=== PATIENT | female | born 1970 | race Caucasian/White ===

== ENCOUNTER 2023-05-01 07:57 | Outpatient (OUT) | payer BC, SELFPAY ==
--- NOTE | 2023-05-01 08:06 | VEIN_ITS ---
[address] [address] Patient Name: LILLIE BOTELLO MRN: [id number] date: 1970 Sex: F Assigned Patient Location: Current Patient Location: Accession/Order Number: [id number] Exam Date: 05/01/2023 08:10 Report Date: 05/01/2023 09:22 At the request of: RUSSELL SHARPE Procedure: VC INJ Foam Sclerosant WUS BUSINESS LEADER PROCEDURE: VC INJ Foam Sclerosant WUS BUSINESS LEADER COMPARISON: None. HISTORY: painful varicose veins I83.813 Pre-operative Diagnosis: CEAP class 3 venous insufficiency with pain, tenderness, edema and incompetent branch saphenous vein(s), chronic venous insufficiency ] leg secondary to venous incompetence Post-operative Diagnosis: CEAP class 3 venous insufficiency with pain, tenderness, edema and incompetent branch saphenous vein(s), chronic venous insufficiency right leg secondary to venous incompetence Procedure Performed: 1. Ultrasound-guided microfoam chemical ablation with Varithenaregistered 2. Intraoperative ultrasound guidance Physician: Jeramy Arriaga M.D. Anesthesia: None Indications for Procedure: 52 year old female. Symptoms including bulging dilated veins, leg cramping and pain, swelling for many years despite conservative medical therapy including medical compression stockings, exercise and analgesics. Prior procedures include endovenous laser ablation. Multiple incompetent varicosities of the right leg. Duplex scan showed reflux and enlarged diameters up to 4 mm. The patient underwent informed consent including management options where the complications of infection, bleeding, pain, and skin injury were discussed. Particular attention was spent discussing thrombus extension and deep vein thrombosis as well as the possibility of pulmonary embolus and treatment with oral or injectable blood thinners. Procedure: The patient walked to the procedure room. All applicable staff donned appropriate apparel. A procedure timeout was performed to confirm correct patient, correct extremity, correct procedure, and correct room set-up including presence of all applicable supplies, devices, and drugs. A duplex ultrasound, performed by myself confirmed the location and incompetence of branch saphenous varicosities and their course was marked on the skin together with the dilated tributaries. The extent of treatment of the vein and the associated varicosities was determined through ultrasound mapping. The skin was prepped and then punctured with a butterfly needle and advanced under ultrasound guidance. The Varithenaregistered canister was activated and the canister was primed and purged as required in the instructions for use. Varithenaregistered was drawn into a sterile syringe. Varithenaregistered was slowly administered at 0.5-1.0 cc/second with close observation by ultrasound of its course in the vessels. Total volume utilized was: 14 mL (4 mL into a 4 mm varicosity of the distal medial lower leg; 4 mL into a 4 mm varicosity posterior to the knee; 6 mL into a 4 mm varicosity posterior medial knee). Following administration of Varithenaregistered the leg was elevated and the patient was asked to repeatedly dorsiflex the ankle to limit flow of Varithenaregistered into perforating veins. Once appropriate spasm had been confirmed in the treated veins, the vascular catheter was removed from the leg and light pressure was applied over the puncture site for hemostasis. The common femoral and deep superficial veins were then evaluated for flow and compressibility prior to dressing placement. The lower extremity was kept elevated at 45 degrees above the horizontal and cording material was applied over the saphenous segments and tributaries to allow for eccentric compression over the target vessels including the targeted saphenous vein(s). A multilayer dressing was applied consisting of foam pads, coban and thigh-high 20-30 mm Hg compression elastic support hose were placed on the patient. The leg was lowered only after compression had been applied and the patient was immediately ambulatory. The patient ambulated 10 minutes under supervision and was without apparent concerns at time of release. Post-care instructions include advising patient to keep post-treatment bandages in place and dry for 48 hours, avoid extended periods of inactivity, avoid heavy exercise for one week, wear compression stockings on the treated leg continuously for two weeks, to walk daily for 10 minutes over the next month. The patient was instructed to take an anti-inflammatory medicine as needed and to follow up for color duplex scan of the Saphenous veins, the treated branch saphenous varicosities, the adjacent deep veins, and additional treatment within 7 days. PERSONNEL: Yandel Howell RN Electronically authenticated by: JERAMY ARRIAGA Date: 05/01/2023 09:22
== END 2023-05-01 07:58 ==
LOC: VC 08:02
PROVIDERS: PCP Radiology Diagnostic Radiology; Visit Provider Radiology Diagnostic Radiology
DX: I83.813 Varicose veins of bilateral lower extremities with pain (principal)
CPT/HCPCS: 36466

== ENCOUNTER 2023-05-06 07:58 | Outpatient (OUT) | payer BC, SELFPAY ==
--- NOTE | 2023-05-06 08:00 | VEIN_ITS ---
Patient: LILLIE BOTELLO Exam Date: 05/06/2023 : 1970 Gender:F Ordering : DR RUSSELL SHARPE M.D. Admission #: [id number] Family : Order #: [id number] CLICK HERE TO VIEW EXAM RADIOLOGY REPORT PROCEDURE: [facility] EST [facility] - OFFICE VISIT FOLLOW UP COMPARISON: None. PROGRESS NOTES: The patient reports improvement in right leg symptoms and appearance. There has been interval reduction in varicosities. The patient has followed our recommendations to walk 20-30 minutes once or twice per day since the procedure. Physical exam demonstrates decrease in varicosities of the right leg. Persistent varicosities are identified along the left leg; and bilateral spider veins. Review of the ultrasound performed the same day demonstrates occlusive thrombus extending throughout the treated vein, see separate report, consistent with a successful ablation. No thrombus extending into or beyond the saphenofemoral junction. The patient expressed a desire to proceed with treatment of remaining incompetent varicosities and spider veins. The patient was informed that treatment was a process and would require several procedures/sessions. IMPRESSION: 1. Successful ablation of the treated branch saphenous varicosities within the right leg. 2. Persistent left lower extremity incompetent varicosities and bilateral spider veins. PLAN: Microfoam chemical ablation of left lower extremity incompetent branch saphenous varicosities. Nurse notes, history and physical were reviewed and confirmed, see attached forms. The nurse was present throughout the physical exam and consultation Dictated by: Jeramy Arriaga M.D. on 05/06/2023 at 09:04 Approved by: Jeramy Arriaga M.D. on 05/06/2023 at 09:07
--- NOTE | 2023-05-06 08:00 | VEIN_ITS ---
Patient: LILLIE BOTELLO Exam Date: 05/06/2023 : 1970 Gender:F Ordering : DR RUSSELL SHARPE M.D. Admission #: [id number] Family : Order #: [id number] CLICK HERE TO VIEW EXAM RADIOLOGY REPORT PROCEDURE: VC EXT VENOUS RT LMTD COMPARISON: None. INDICATIONS: Phlebitis of superficial veins of right lower extremity I80.01 TECHNIQUE: Lower extremity green scale and Duplex Doppler evaluation of the deep venous system from the inguinal ligament through the calf veins. FINDINGS: REGION: Right lower extremity. THROMBI: Negative for DVT. Chemically induced thrombus in multiple varicose veins in right lower leg. COMPRESSIBILITY: Non-compressible segments. FLOW: Areas of no flow. OTHER: No significant varicose veins remain. CONCLUSION: 1. Successful post ablation occlusion of the treated right leg incompetent branch saphenous varicosities. No additional varicosities remain within the right leg. Dictated by: Jeramy Arriaga M.D. on 05/06/2023 at 09:03 Approved by: Jeramy Arriaga M.D. on 05/06/2023 at 09:04
== END 2023-05-06 07:59 ==
LOC: VC 07:59
PROVIDERS: PCP Radiology Diagnostic Radiology; Visit Provider Radiology Diagnostic Radiology
DX: I80.01 Phlebitis and thrombophlebitis of superficial vessels of right lower extremity (principal)
CPT/HCPCS: 93971; G0463

== ENCOUNTER 2023-05-09 08:59 | Outpatient (OUT) | payer BC, SELFPAY ==
--- NOTE | 2023-05-09 | VEIN_ITS ---
[address] [address] Patient Name: LILLIE BOTELLO MRN: [id number] date: 1970 Sex: F Assigned Patient Location: Current Patient Location: Accession/Order Number: [id number] Exam Date: 05/09/2023 09:00 Report Date: 05/09/2023 12:39 At the request of: LEN STAFFORD Procedure: VC INJ Foam Sclerosant WUS PANTRY STEWARD/STEWARDESS PROCEDURE: VC INJ Foam Sclerosant WUS PANTRY STEWARD/STEWARDESS COMPARISON: None. HISTORY: Pain due to varicose veins of bilateral legs I83.813 Pre-operative Diagnosis: CEAP class C3 venous insufficiency with pain, tenderness, edema and incompetent saphenous veins, chronic venous insufficiency left leg secondary to venous incompetence Post-operative Diagnosis: CEAP class C3 venous insufficiency with pain, tenderness, edema and incompetent saphenous veins, chronic venous insufficiency left leg secondary to venous incompetenceinsufficiency leg secondary to venous incompetence Procedure Performed: 1. Ultrasound-guided microfoam chemical ablation with Varithenaregistered 2. Intraoperative ultrasound guidance Physician: Len Stafford M.D. Anesthesia: None Indications for Procedure: 52-year-old female who presents with a long history of lower extremity pain swelling and varicose vein for many years despite conservative medical therapy including medical compression stockings, exercise and analgesics. Prior procedures include a venous laser ablation. Multiple incompetent varicosities of the left leg. Duplex scan showed reflux and enlarged diameters up to 7 mm. The patient underwent informed consent including management options where the complications of infection, bleeding, pain, and skin injury were discussed. Particular attention was spent discussing thrombus extension and deep vein thrombosis as well as the possibility of pulmonary embolus and treatment with oral or injectable blood thinners. Procedure: The patient walked to the procedure room. All applicable staff donned appropriate apparel. A procedure timeout was performed to confirm correct patient, correct extremity, correct procedure, and correct room set-up including presence of all applicable supplies, devices, and drugs. A duplex ultrasound, performed by confirmed the location and incompetence of left leg varicose veins and their course marked on the skin together with the dilated tributaries. The extent of treatment of the vein and the associated varicosities was determined through ultrasound mapping. The patient was placed on the operating room table. The limb was prepped. The skin was punctured with a butterfly needle through the anesthetized skin with the venous access needle and advanced under ultrasound guidance. The target limb was positioned at 45 degrees of elevation in relation to the torso. The Varithenaregistered canister was activated and the canister was primed and purged as required in the instructions for use. The following injections were made: 4 cc injected into a 3 mm varicose vein distal lower left lower leg 6 cc injected into a 5 mm varicose vein left medial mid lower leg 5 cc injected into a 6 mm vein left posterior proximal lower leg Varithenaregistered was slowly administered at 0.5-1.0 cc/second with close observation by ultrasound of its course in the injected veins. A total volume of 15 mL of Varithenaregistered was used. During administration of Varithenaregistered, the patient was asked to dorsiflex the ankle to limit flow of Varithenaregistered into perforating veins. Once appropriate spasm had been confirmed in the treated veins, the vascular catheter was removed from the leg and light pressure was applied over the puncture site for hemostasis The common femoral and deep superficial veins were then evaluated for flow and compressibility prior to dressing placement. The lower extremity was kept elevated at 45 degrees above the horizontal and cording material was applied over the saphenous segments and tributaries to allow for eccentric compression over the target vessels including the targeted saphenous vein(s). A multilayer dressing was applied consisting of foam pads, coban and thigh-high 20-30 mm Hg compression elastic support hose were placed on the patient. The leg was lowered only after compression had been applied and the patient was immediately ambulatory. The patient ambulated 10 minutes under supervision and was without apparent concerns at time of release Post-care instructions include advising patient to keep post-treatment bandages in place and dry for 48 hours, avoid extended periods of inactivity, avoid heavy exercise for one week, wear compression stockings on the treated leg continuously for two weeks, to walk daily for 10 minutes over the next month. The patient was instructed to take an anti-inflammatory medicine as needed and to follow up for color duplex scan of the GSV, the treated superficial varices, the adjacent deep veins, and additional treatment within 7 days. PERSONNEL: Yandel Howell RN Electronically authenticated by: LEN STAFFORD Date: 05/09/2023 12:39
== END 2023-05-09 09:00 ==
LOC: VC 08:59
PROVIDERS: PCP Radiology Diagnostic Radiology; Visit Provider Radiology Diagnostic Radiology
DX: I83.813 Varicose veins of bilateral lower extremities with pain (principal)
CPT/HCPCS: 36466

== ENCOUNTER 2023-05-14 08:30 | Outpatient (OUT) | payer BC, SELFPAY ==
--- NOTE | 2023-05-14 08:30 | VEIN_ITS ---
Patient: LILLIE BOTELLO Exam Date: 05/14/2023 : 1970 Gender:F Ordering : DR RUSSELL SHARPE M.D. Admission #: [id number] Family : Order #: [id number] CLICK HERE TO VIEW EXAM RADIOLOGY REPORT PROCEDURE: [facility] EST [facility] - OFFICE VISIT FOLLOW UP COMPARISON: FACILITY EST [facility]D, 05/06/2023. PROGRESS NOTES: The patient reports improvement in leg symptoms. There has been interval reduction in varicosities. The patient has followed our recommendations to walk 20-30 minutes once or twice per day since the procedure. Physical exam demonstrates decrease in superficial varicosities of the bilateral legs. Review of the ultrasound performed the same day demonstrates occlusive thrombus extending throughout the treated vein, see separate report, consistent with a successful ablation. No thrombus extending into or beyond the saphenofemoral junction. Deep vein thrombus within the mid and proximal posterior tibial vein was also present. The patient expressed a desire to proceed with treatment of remaining incompetent branch saphenous varicosities and spider veins/reticular veins at the end of summer/early fall. The patient was informed that treatment was a process and would require several procedures/sessions. IMPRESSION: 1. Successful ablation of the saphenous vein 2. Persistent incompetent branch saphenous veins, spider veins/reticular veins, and mild lower extremity symptoms 3. Deep vein thrombus involving the left posterior tibial vein. PLAN: 1. Xarelto 15 mg twice a day for 21 days to assisting clearing of right posterior tibial vein thrombus. 2. Ultrasound left lower extremity veins in 3 weeks to document clearing of posterior tibial vein thrombus. 3. Patient will resume treatment of remaining incompetent branch saphenous varicosities, spider veins , and reticular veins later this fall. Nurse notes, history and physical were reviewed and confirmed, see attached forms. The nurse was present throughout the physical exam and consultation Dictated by: Jeramy Arriaga M.D. on 05/14/2023 at 12:56 Approved by: Jeramy Arriaga M.D. on 05/14/2023 at 13:01
--- NOTE | 2023-05-14 08:30 | VEIN_ITS ---
Patient: LILLIE BOTELLO Exam Date: 05/14/2023 : 1970 Gender:F Ordering : DR RUSSELL SHARPE M.D. Admission #: [id number] Family : Order #: [id number] CLICK HERE TO VIEW EXAM RADIOLOGY REPORT PROCEDURE: VC EXT VENOUS LT LIMITED COMPARISON: None. INDICATIONS: Phlebitis of superficial veins of lt. lower extremity I80.02 TECHNIQUE: Lower extremity green scale and Duplex Doppler evaluation of the deep venous system from the inguinal ligament through the calf veins. FINDINGS: REGION: Left lower extremity. THROMBI: Positive for DVT. Positive for DVT in mid PTV to prox PTV. Varithena induced thrombus is visualized at dist/med calf, mid/med calf, and prox/posterior. COMPRESSIBILITY: Non-compressible segments. FLOW: Areas of no flow. OTHER: Dist/med thigh patent varicose vein 2.4mm with 0.9s reflux. CONCLUSION: 1. Successful occlusion of treated branch saphenous varicosities. 2. Development of deep vein thrombus within the mid and proximal posterior tibial vein. Dictated by: Jeramy Arriaga M.D. on 05/14/2023 at 12:49 Approved by: Jeramy Arriaga M.D. on 05/14/2023 at 12:56
== END 2023-05-14 08:31 ==
LOC: VC 08:30
PROVIDERS: PCP Radiology Diagnostic Radiology; Visit Provider Radiology Diagnostic Radiology
DX: I80.02 Phlebitis and thrombophlebitis of superficial vessels of left lower extremity (principal)
CPT/HCPCS: 93971; G0463

== ENCOUNTER 2023-06-04 09:01 | Outpatient (OUT) | payer BC, SELFPAY ==
--- NOTE | 2023-06-04 09:02 | VEIN_ITS ---
Patient: LILLIE BOTELLO Exam Date: 06/04/2023 : 1970 Gender:F Ordering : DR RUSSELL SHARPE M.D. Admission #: [id number] Family : Order #: [id number] CLICK HERE TO VIEW EXAM RADIOLOGY REPORT PROCEDURE: VC EXT VENOUS LT LIMITED COMPARISON: VC EXT VENOUS LT LIMITED, 05/14/2023. INDICATIONS: I80.02 Phlebitis of superficial veins of lt lower extremity TECHNIQUE: Lower extremity green scale and Duplex Doppler evaluation of the deep venous system from the inguinal ligament through the calf veins. FINDINGS: REGION: Left lower extremity. THROMBI: Positive for DVT. DVT present in PTV from mid to proximal calf. Thrombus is chronic in appearance COMPRESSIBILITY: Non-compressible segments. FLOW: Areas of no flow. OTHER: CONCLUSION: 1. Persistent small section of thrombus within left posterior tibial vein; stable to minimally improved. Dictated by: Jeramy Arriaga M.D. on 06/04/2023 at 10:19 Approved by: Jeramy Arriaga M.D. on 06/04/2023 at 10:21
--- NOTE | 2023-06-04 09:02 | VEIN_ITS ---
Patient: LILLIE BOTELLO Exam Date: 06/04/2023 : 1970 Gender:F Ordering : DR RUSSELL SHARPE M.D. Admission #: [id number] Family : Order #: [id number] CLICK HERE TO VIEW EXAM RADIOLOGY REPORT PROCEDURE: [facility] EST [facility] - OFFICE VISIT FOLLOW UP COMPARISON: [facility], 05/14/2023. PROGRESS NOTES: The patient reports continued mild tenderness within legs. The patient has followed our recommendations to walk 20-30 minutes once or twice per day since the procedure. Physical exam demonstrates multiple thrombosed superficial varicosities bilaterally. No erythema or evidence of infection. Persistent varicosities are identified along the legs bilaterally. Review of the ultrasound performed the same day demonstrates small amount of thrombus within the left posterior tibial vein which remains stable to minimally improved despite patient nearly completing her 3 week course of Xarelto. The patient expressed a desire to proceed with treatment of remaining incompetent branch saphenous varicosities and spider veins later this fall. The patient was informed that treatment was a process and would require several procedures/sessions. VEIN/[facility] EST TD IMPRESSION: 1. Persistent deep vein thrombus within the left posterior tibial vein. 2. Persistent incompetent branch saphenous varicosities and spider veins. PLAN: 1. Patient will finish current course of Xarelto, with no additional treatment planned. 2. Microfoam chemical ablation of remaining incompetent branch saphenous varicosities followed by sclerotherapy treatment of spider veins later this fall when patient returns for treatment. Nurse notes, history and physical were reviewed and confirmed, see attached forms. The nurse was present throughout the physical exam and consultation Dictated by: Jeramy Arriaga M.D. on 06/04/2023 at 10:21 Approved by: Jeramy Arriaga M.D. on 06/04/2023 at 10:27
== END 2023-06-04 09:02 | disposition home or self-care (01) ==
LOC: VC 09:01
PROVIDERS: PCP Radiology Diagnostic Radiology; Visit Provider Radiology Diagnostic Radiology
DX: I80.02 Phlebitis and thrombophlebitis of superficial vessels of left lower extremity (principal)
CPT/HCPCS: 93971; G0463

== ENCOUNTER 2023-09-24 13:59 | Outpatient (OUT) | payer BC, SELFPAY ==
--- NOTE | 2023-09-24 | VEIN_ITS ---
[address] [address] Patient Name: LILLIE BOTELLO MRN: [id number] date: 1970 Sex: F Assigned Patient Location: Current Patient Location: VC Accession/Order Number: [id number] Exam Date: 09/24/2023 14:00 Report Date: 09/24/2023 15:15 At the request of: RUSSELL SHARPE Procedure: VC INJ Sclerosing SOLMULT Vein EXAMINATION: VC INJ Sclerosing SOLMULT Vein HISTORY: Pain due to varicose veins of bilateral legs I83.813 COMPARISON: No relevant comparison available. TECHNIQUE: The risks and benefits of the procedure were explained at length to the patient and informed written consent was obtained. Yandel Howell was present and assisted. The procedure was performed under sterile technique. The patient's leg was wrapped with Coban and postprocedural verbal and written instructions provided. SCLEROSANT: 4 cc, 0.5% polidocanol VEIN(S) INJECTED: 28 veins in the left leg VISUALIZATION: Ultrasound was not used to visualize the sclerosant ANESTHESIA: Supercooled air COMPLICATIONS: None VEIN/VC INJ Sclerosing SOLMULT Vein IMPRESSION: Technically successful sclerotherapy as described Electronically authenticated by: RUSSELL SHARPE Date: 09/24/2023 15:15
== END 2023-09-24 14:00 | disposition home or self-care (01) ==
LOC: VC 13:59
PROVIDERS: PCP Radiology Diagnostic Radiology; Visit Provider Radiology Diagnostic Radiology
DX: I83.813 Varicose veins of bilateral lower extremities with pain (principal)
CPT/HCPCS: 36471